=== PATIENT | female | born 1955 | race Caucasian/White ===

== ENCOUNTER 2020-11-06 10:06 | Emergency (ER) | payer BC ==
[~2020-11-06] VITALS: Ht 160 cm; Wt 68.2 kg
[2020-11-06] MEDS ORDERED: CefTRIAXone 1 GM/DEXTROSE 50 ML IV ONE (12:45)
[2020-11-06] MEDS ORDERED: AZITHROMYCIN 500 MG/NS 250 ML IV ONE (12:45)
[2020-11-06 13:07] LABS: BASOPHILS % (AUTO) 0.2 % (0.0-2.0); EOSINOPHILS % (AUTO) 0.1 % (1.0-6.0); HEMATOCRIT 39.2 % (36-46); HEMOGLOBIN 13.1 g/dL (12.0-16.0); LYMPHOCYTES # (AUTO) 0.5 K/uL (1.0-4.8); LYMPHOCYTES % (AUTO) 6.8 % (22.0-44.0); MEAN CORPUSCULAR HEMOGLOBIN 31.2 pg (26.0-34.0); MEAN CORPUSCULAR HGB CONC 33.5 G/dL (31.0-37.0); MEAN CORPUSCULAR VOLUME 93 fL (80-100); MONOCYTES # (AUTO) 0.5 K/uL (0.1-1.0); MONOCYTES % (AUTO) 7.4 % (2.0-9.0); NEUTROPHILS # (AUTO) 5.9 K/uL (1.8-7.7); NEUTROPHILS % (AUTO) 85.5 % (40.0-70.0); PLATELET COUNT (AUTO) 308 K/uL (150-450); RED BLOOD CELL COUNT(AUTO) 4.21 MIL/uL (4.00-5.20); RED CELL DISTRIBUTION WIDTH 13.1 % (11.5-14.5)
[2020-11-06 13:09] LABS: ANION GAP 7 mmol/L (8-16); CALCIUM, TOTAL 8.2 mg/dL (8.8-10.5); CARBON DIOXIDE 28 mmol/L (22-29); CHLORIDE 98 mmol/L (98-107); GLOMERULAR FILTR. RATE CALC > 60 mL/min (>60); GLUCOSE,RANDOM 105 mg/dL (70-110); POTASSIUM 4.2 mmol/L (3.5-5.1); SODIUM SERUM 133 mmol/L (136-145); UREA NITROGEN, BLOOD 4 mg/dL (7-18)
[2020-11-06 13:19] LABS: D-DIMER 0.92 mg/L FEU (0.00-0.50); INR 0.9 (0.9-1.1); PROTHROMBIN TIME 10.1 SEC (9.4-11.6)
[2020-11-06 13:21] LABS: B-TYPE NATRIURETIC PEPTIDE 19 pg/mL (0-100)
[2020-11-06 13:28] LABS: ALANINE AMINOTRANSFERASE 45 U/L (12-78); ALBUMIN 3.1 g/dL (3.4-5.0); ALKALINE PHOSPHATASE 87 U/L (46-116); ASPARTATE AMINOTRANSFERASE 30 U/L (15-37); BILIRUBIN,TOTAL 0.5 mg/dL (0.1-1.0); C-REACTIVE PROTEIN QUANT 12.03 mg/dL (0.00-0.30); CREATINE KINASE, TOTAL ONLY 61 U/L (26-192); FERRITIN 643 ng/mL (8-252); FREE T4 (FREE THYROXINE) 1.06 ng/dL (0.76-1.46); LACTATE DEHYDROGENASE 270 U/L (81-234); THYROID STIMULATING HORMONE 13.63 uIU/mL (0.36-3.74); TOTAL PROTEIN, SERUM 7.2 g/dL (6.4-8.2)
[2020-11-06] MEDS ORDERED: DEXAMETHASONE SOD PHOS 4 MG/ML 5 ML VIAL IVP ONE (13:30)
[2020-11-06] MEDS ORDERED: ALBUTEROL SULFATE HFA 90 MCG/PUFF 8 GM INHALER IH ONE (13:30)
[2020-11-06 13:48] LABS: LACTIC ACID 1.2 mmol/L (0.4-2.0)
[2020-11-06 14:42] LABS: INFLUENZA TYPE A NEGATIVE FOR TYPE A (NEGATIVE); INFLUENZA TYPE B NEGATIVE FOR TYPE B (NEGATIVE)
[2020-11-06 17:37] VITALS: BP 104/61
== END 2020-11-06 18:29 | disposition short-term general hospital (02) ==
LOC: EMS 10:06
DX: U07.1 COVID-19 (principal); J12.89 Other viral pneumonia; R06.89 Other abnormalities of breathing
CPT/HCPCS: 71045; 80053; 82550; 82728; 83605; 83615; 83880; 84145; 84439; 84443; 84484; 85025; 85379; 85384; 85610; 85730; 86140; 87040; 87426; 87804; 93005; 94640; 96365; 96367; 96375; 99285; J0456; J0696; J1100; U0003; J3535